=== PATIENT | male | born 1950 | race Caucasian/White ===

== ENCOUNTER 2019-01-24 11:44 | Emergency (ER) | payer MEDICARE ==
[~2019-01-24] VITALS: Ht 182.9 cm; Wt 60.0 kg
[~2019-01-24 11:44] MED LIST: BACTRIM DS1 TAB PO; DOXYCYCL HYC100 MG PO; LORTAB 1010 MG PO
[2019-01-24 12:43] LABS: HEMATOCRIT 44.9 % (39.0-50.0); HEMOGLOBIN 14.6 g/dl (14.0-18.0); IMMATURE GRANULOCYTES 0.6 % (0.0-5.0); MEAN CELL VOLUME 97.6 fL CALC (80.0-100.0); MEAN CORPUSCULAR HGB 31.7 pG CALC (26.0-32.0); MEAN CORPUSCULAR HGB CONC 32.5 g/L CALC (32.0-36.0); NEUT# 5.64 thou/uL (1.82-7.42); RED BLOOD COUNT 4.6 mill/uL (4.70-6.10); RED CELL DISTRI WIDTH 13.1 % (11.5-15.5)
[2019-01-24 12:58] LABS: ALBUMIN 3.6 g/dL (3.2-5.0); ALKALINE PHOSPHATASE 60 u/l (38-126); ANION GAP 12 (6-22 (CALC)); BILIRUBIN, TOTAL 0.4 mg/dL (0.0-1.4); BUN 8 mg/dL (8-23); BUN/CREATININE RATIO 11 (12-20 (CALC)); CARBON DIOXIDE 28 mmol/l (22-30); CHLORIDE 104 mmol/l (95-108); CREATININE 0.7 mg/dL (0.7-1.3); GFR > 60 ML/MIN (>=60 (CALC)); GFR FOR AFR.AMER. > 60 ML/MIN (>=60 (CALC)); LIPASE 403 u/l (23-300); POTASSIUM 4.2 mmol/l (3.5-5.1); SGOT/AST 16 u/l (19-48); SODIUM 139 mmol/l (137-146); TOTAL PROTEIN 6.4 g/dL (6.3-8.2)
[2019-01-24 14:04] LABS: URINE BILIRUBIN - DIPSTICK NEGATIVE (NEGATIVE); URINE BLOOD DIPSTICK NEGATIVE (NEGATIVE); URINE COLOR YELLOW; URINE GLUCOSE - DIPSTICK NEGATIVE (NEGATIVE); URINE KETONE NEGATIVE (NEGATIVE); URINE LEUK ESTERASE NEGATIVE (NEGATIVE); URINE NITRITE - DIPSTICK NEGATIVE (Negative); URINE PH 5.5 (4.5-8.0); URINE PROTEIN - DIPSTICK NEGATIVE (NEG-TRACE); URINE SPECIFIC GRAVITY 1.025; URINE UROBILINOGEN - DIPSTICK 0.2 E.U./dL (0.2)
[2019-01-24 15:25] VITALS: BP 128/68
[2019-02-01] MEDS ORDERED: TYLENOL 500MG TAB PO (11:10)
== END 2019-01-24 15:38 | disposition home or self-care (01) ==
LOC: ED 11:44
PROVIDERS: Family Medicine
DX: R10.31 Right lower quadrant pain (principal); M25.551 Pain in right hip; X50.0XXA Overexertion from strenuous movement or load, initial encounter; Y92.009 Unspecified place in unspecified non-institutional (private) residence as the place of occurrence of the external cause

== ENCOUNTER → 2019-02-01 | Outpatient (REF) | payer MEDICARE ==
[~2019-02-01] VITALS: Ht 177.8 cm; Wt 81.2 kg
[~2019-02-01] MED LIST changes: +TYLENOL 500MG TAB PO; +TYLENOL325 MG PO
[2019-02-01 11:08] VITALS: BP 133/65
== END ==
LOC: FIORUCCI 10:36
PROVIDERS: ATTEND Surgery
DX: K40.20 Bilateral inguinal hernia, without obstruction or gangrene, not specified as recurrent (principal)

== ENCOUNTER 2019-02-07 08:06 | Day surgery (SDC) | payer MEDICARE ==
[~2019-02-07 08:06] MED LIST changes: -TYLENOL325 MG PO
[2019-02-07 08:31] VITALS: BP 144/72
[2019-02-07] MEDS ORDERED: TYLENOL325 MG PO (08:35)
[2019-02-07 08:45] LABS: BARBITURATES NEGATIVE (NEGATIVE); COCAINE NEGATIVE (NEGATIVE); METHADONE NEGATIVE (NEGATIVE); OXCYCODONE NEGATIVE (NEGATIVE); TETRAHYDROCANNABIONOL NEGATIVE (NEGATIVE); TRICYLIC ANTIDEPRESSANTS NEGATIVE (NEGATIVE)
== END 2019-02-07 09:05 | disposition home or self-care (01) ==
LOC: ORM 08:06
PROVIDERS: ATTEND Surgery
DX: K40.20 Bilateral inguinal hernia, without obstruction or gangrene, not specified as recurrent (principal); F15.90 Other stimulant use, unspecified, uncomplicated; Z53.8 Procedure and treatment not carried out for other reasons

== ENCOUNTER 2019-02-16 16:35 | Emergency (ER) | payer MEDICARE ==
[~2019-02-16] VITALS: Ht 177.8 cm; Wt 84.1 kg
[~2019-02-16 16:35] MED LIST changes: +TYLENOL325 MG PO
[2019-02-16 17:09] LABS: HEMATOCRIT 43.3 % (39.0-50.0); HEMOGLOBIN 14.2 g/dl (14.0-18.0); IMMATURE GRANULOCYTES 0.9 % (0.0-5.0); MEAN CELL VOLUME 96.2 fL CALC (80.0-100.0); MEAN CORPUSCULAR HGB 31.6 pG CALC (26.0-32.0); MEAN CORPUSCULAR HGB CONC 32.8 g/L CALC (32.0-36.0); NEUT# 7.72 thou/uL (1.82-7.42); RED BLOOD COUNT 4.5 mill/uL (4.70-6.10); RED CELL DISTRI WIDTH 13.2 % (11.5-15.5)
[2019-02-16 17:32] LABS: ALBUMIN 4.1 g/dL (3.2-5.0); ALKALINE PHOSPHATASE 57 u/l (38-126); ANION GAP 15 (6-22 (CALC)); BILIRUBIN, TOTAL 0.3 mg/dL (0.0-1.4); BUN 16 mg/dL (8-23); BUN/CREATININE RATIO 20 (12-20 (CALC)); CARBON DIOXIDE 27 mmol/l (22-30); CHLORIDE 103 mmol/l (95-108); CREATININE 0.8 mg/dL (0.7-1.3); GFR > 60 ML/MIN (>=60 (CALC)); GFR FOR AFR.AMER. > 60 ML/MIN (>=60 (CALC)); LIPASE 180 u/l (23-300); POTASSIUM 4.2 mmol/l (3.5-5.1); SGOT/AST 20 u/l (19-48); SODIUM 140 mmol/l (137-146)
[2019-02-16 18:43] LABS: URINE BILIRUBIN - DIPSTICK NEGATIVE (NEGATIVE); URINE BLOOD DIPSTICK NEGATIVE (NEGATIVE); URINE COLOR YELLOW; URINE GLUCOSE - DIPSTICK NEGATIVE (NEGATIVE); URINE KETONE NEGATIVE (NEGATIVE); URINE LEUK ESTERASE NEGATIVE (NEGATIVE); URINE NITRITE - DIPSTICK NEGATIVE (Negative); URINE PH 6.5 (4.5-8.0); URINE PROTEIN - DIPSTICK NEGATIVE (NEG-TRACE); URINE UROBILINOGEN - DIPSTICK 0.2 E.U./dL (0.2)
[2019-02-16 19:38] VITALS: BP 138/91
== END 2019-02-16 19:43 | disposition home or self-care (01) ==
LOC: ED 16:35
PROVIDERS: Family Medicine
DX: R10.31 Right lower quadrant pain (principal); K46.9 Unspecified abdominal hernia without obstruction or gangrene; F17.210 Nicotine dependence, cigarettes, uncomplicated
CPT/HCPCS: Q9967

== ENCOUNTER 2019-02-19 07:12 | Day surgery (SDC) | payer MEDICARE ==
[~2019-02-19] VITALS: Ht 177.8 cm; Wt 85.7 kg
[2019-02-19 07:50] LABS: BARBITURATES NEGATIVE (NEGATIVE); COCAINE NEGATIVE (NEGATIVE); METHADONE NEGATIVE (NEGATIVE); OXCYCODONE NEGATIVE (NEGATIVE); TETRAHYDROCANNABIONOL NEGATIVE (NEGATIVE); TRICYLIC ANTIDEPRESSANTS NEGATIVE (NEGATIVE)
[2019-02-19] MEDS ORDERED: PERCOCET 5/325M1 TAB PO (10:47)
[2019-02-19 12:01] VITALS: BP 108/57
== END 2019-02-19 12:40 | disposition home or self-care (01) ==
LOC: ORM 07:12
PROVIDERS: ATTEND Surgery
PROC: 0YUA4JZ Supplement Bilateral Inguinal Region with Synthetic Substitute, Percutaneous Endoscopic Approach (ICD-10-PCS; principal; 2019-02-19)
DX: K40.20 Bilateral inguinal hernia, without obstruction or gangrene, not specified as recurrent (principal); F17.210 Nicotine dependence, cigarettes, uncomplicated
CPT/HCPCS: C1781; C9290; J0131; J2270; J2710

== ENCOUNTER 2021-02-15 | Emergency (ER) | payer MEDICARE ==
[~2021-02-15] MED LIST changes: +PERCOCET 5/325M1 TAB PO
[2021-02-15] MEDS ORDERED: CLINDAMYCIN300 M1 PO (18:11)
== END 2021-02-15 18:20 | disposition home or self-care (01) ==
PROC: 0HBMXZZ Excision of Right Foot Skin, External Approach (ICD-10-PCS; principal; 2021-02-15)
DX: L84 Corns and callosities (principal); E11.9 Type 2 diabetes mellitus without complications; F17.210 Nicotine dependence, cigarettes, uncomplicated

== ENCOUNTER 2022-12-02 13:07 | Emergency (ER) | payer MEDICARE ==
[~2022-12-02] VITALS: Ht 182.9 cm; Wt 77.3 kg
[2022-12-02] VITALS (11 sets, daily range): BP systolic 124–145; BP diastolic 64–89
[~2022-12-02 13:07] MED LIST changes: +CLINDAMYCIN300 M1 PO
[2022-12-02] MEDS ORDERED: VIBRAMYCIN100 M2 PO (15:54)
[2022-12-02] MEDS ORDERED: NAPROXEN500 MG PO (15:54)
== END 2022-12-02 16:45 | disposition home or self-care (01) ==
LOC: ED 13:07
PROC: 0HDMXZZ Extraction of Right Foot Skin, External Approach (ICD-10-PCS; principal; 2022-12-02)
DX: M79.671 Pain in right foot (principal); E11.9 Type 2 diabetes mellitus without complications; F17.210 Nicotine dependence, cigarettes, uncomplicated

== ENCOUNTER 2023-04-25 17:26 | Emergency (ER) | payer MEDICARE ==
[~2023-04-25] VITALS: Ht 182.9 cm; Wt 79.0 kg
[~2023-04-25 17:26] MED LIST changes: +NAPROXEN500 MG PO; +VIBRAMYCIN100 M2 PO
[2023-04-25 17:42] VITALS: BP 138/75
[2023-04-25] MEDS ORDERED: VIBRAMYCIN100 M2 PO (17:42)
[2023-04-25 17:50] VITALS: BP 138/75
== END 2023-04-25 17:54 | disposition home or self-care (01) ==
LOC: ED 17:26
DX: L03.116 Cellulitis of left lower limb (principal); S80.862A Insect bite (nonvenomous), left lower leg, initial encounter; W57.XXXA Bitten or stung by nonvenomous insect and other nonvenomous arthropods, initial encounter; E11.9 Type 2 diabetes mellitus without complications; F17.200 Nicotine dependence, unspecified, uncomplicated